=== PATIENT | female | born 1940 | race Caucasian/White ===

== ENCOUNTER 2021-09-17 08:06 | Day surgery (SDC) | payer MEDICARE, OTHER ==
[~2021-09-17 08:06] MED LIST: Lactated Ringers 1,000 ML IV SCH; Sodium Chloride 0.9% 10 ML Syringe FLUSH PRN
[2021-09-17] MEDS ORDERED: Propofol 200 MG/20 ML SDV IV ONE (08:07)
[2021-09-17] MEDS ORDERED: Propofol 200 MG/20 ML SDV ONE ×2 (08:37→09:46)
--- NOTE | 2021-09-17 09:54 | PCM.PRNOTE ---
- Free Text/Narrative Note: PROCEDURE PERFORMED: Colonoscopy with polypectomy PRE-PROCEDURE DIAGNOSIS/INDICATION FOR PROCEDURE: History of colon polyps; family history of colorectal cancer (3 siblings); Last colonoscopy 04/18/15 with one tubular adenoma in the rectum CONSENT: Informed consent was obtained prior to the procedure after discussion of the risks (including pain, bleeding, infection, perforation, missed polyps, inability to completely remove polyps or complete procedure necessitating repeat colonoscopy, adverse reaction to anesthesia, cardiovascular event), benefits and alternatives and expected outcomes. The patient expressed understanding and wished to proceed. Verbal consent given and consent form signed. PROCEDURAL PAUSE: Completed SEDATION: Per anesthesia DESCRIPTION OF PROCEDURE: Patient was placed in the left lateral decubitus position. After adequate sedation and anesthetic was administered, a rectal exam was performed revealing external hemorrhoid tags. A lubricated Olympus Video Colonoscope was inserted into the rectum and air insufflation was performed. The colonoscope was advanced through the rectum, sigmoid, descending, transverse, and ascending colon without difficulties. The cecum was reached and the ileocecal valve as well as the appendiceal orifice were identified and pictorially documented. After adequate visualization of the cecum, the scope was withdrawn, giving 360- degree views of the colonic mucosa and retroflexion was performed in the rectum with the following findings noted: Ileocecal valve: Normal Cecum: Normal Ascending colon: At 140cm, irregular elongated polyp removed with multiple biopsies of cold forceps Hepatic flexure: Normal Transverse colon: At 100cm, <0.5cm sessile polyp removed with cold forceps; At 90cm, 0.6cm polyp removed with cold loop Splenic flexure: Normal Descending colon: Normal Sigmoid colon: Scattered diverticulosis Rectum: Normal Each polyp removal site with subsequent complete polypoid tissue removal and hemostasis noted. The scope was straightened, air suction performed, and the scope withdrawn without complication. Preparation adequacy [place] Bowel Score 9/9. IMPRESSION: Colonoscopy performed revealing: - Four polyps, pathology now pending - Sigmoid diverticulosis - External hemorrhoid tags PLAN: Will contact the patient when pathology results received with recommendation for repeat colonoscopy. Encourage adequate fiber diet and bowel regimen to ensure avoidance of constipation.
[2021-09-17] MEDS ORDERED: Ondansetron 4 MG/2 ML SDV IV ONE (15:47)
== END 2021-09-17 11:30 | disposition home or self-care (01) ==
LOC: KA.SDS 08:06
PROVIDERS: ATTEND Family Medicine
DX: Z12.11 Encounter for screening for malignant neoplasm of colon (principal); D12.2 Benign neoplasm of ascending colon; D12.3 Benign neoplasm of transverse colon; K57.30 Diverticulosis of large intestine without perforation or abscess without bleeding; K64.4 Residual hemorrhoidal skin tags; Z79.899 Other long term (current) drug therapy; Z87.891 Personal history of nicotine dependence
CPT/HCPCS: 00812; J2405; J2704; J7120